=== PATIENT | male | born 1990 | race Caucasian/White ===

== ENCOUNTER 2017-04-10 04:42 | Emergency (ER) | payer BC ==
[~2017-04-10] VITALS: Ht 177.8 cm; Wt 101.6 kg
[2017-04-10 04:47] VITALS: BP 136/85
[2017-04-10] MEDS ORDERED: AZITHROMYCIN 500 MG TABLET PO ONE (05:30)
[2017-04-10] MEDS ORDERED: CEFTRIAXONE 250 MG IM ONE (05:30)
[2017-04-10] MEDS ORDERED: AZITHROMYCIN 500 MG TABLET ONE (05:31)
[2017-04-10] MEDS ORDERED: CEFTRIAXONE 250 MG ONE (05:31)
== END 2017-04-10 05:48 | disposition home or self-care (01) ==
LOC: ED 04:59
DX: Z20.2 Contact with and (suspected) exposure to infections with a predominantly sexual mode of transmission (principal); A74.9 Chlamydial infection, unspecified
CPT/HCPCS: 87491; 87591; 96372; 99284; J0696